=== PATIENT | female | born 1975 | race Caucasian/White ===

== ENCOUNTER 2016-11-19 12:18 | Emergency (ER) | payer MEDICAID ==
[~2016-11-19] VITALS: Ht 167.6 cm; Wt 72.6 kg
[2016-11-19 12:32] VITALS: BP 117/70; PULSE 85; RESP 20; TEMP 98.3; O2SAT 97
--- NOTE | 2016-11-19 12:37 | NUR ---
Pt placed to ER waiting room in stable condition. Urine specimen cup provided.
--- NOTE | 2016-11-19 12:52 | NUR ---
MD Russ at bedside.
--- NOTE | 2016-11-19 12:52 | NUR ---
Patient placed in room 1 for MD Rodríguez.
[2016-11-19] MEDS ORDERED: KETOROLAC TROMETHAMINE 60 MG/2 ML VIAL IM ONE (13:00)
[2016-11-19] MEDS ORDERED: DEXAMETHASONE SOD PHOSPHATE 10 MG/ML VIAL IVP ONE (13:00)
[2016-11-19 13:17] LABS: BILIRUBIN,URINE NEGATIVE (NEGATIVE); BLOOD, URINE NEGATIVE (NEGATIVE); CLARITY/URINE CLEAR (CLEAR); COLOR,URINE YELLOW (YELLOW); GLUCOSE,URINE NEGATIVE (NEGATIVE); KETONES,URINE NEGATIVE (NEGATIVE); LEUKOCYTE ESTERASE ,URINE NEGATIVE (NEGATIVE); NITRITE, URINE NEGATIVE (NEGATIVE); PROTEIN URINE NEGATIVE (NEGATIVE); UROBILINOGEN,URINE 0.2 (0.2-1.0)
[2016-11-19] MEDS ORDERED: DEXAMETHASONE SOD PHOSPHATE 10 MG/ML VIAL IM ONE (13:45)
[2016-11-19 13:55] VITALS: BP 119/66; PULSE 78; RESP 16; O2SAT 99
--- NOTE | 2016-11-19 13:56 | NUR ---
Patient given written and verbal discharge instructions and verbalizes understanding. ER MD discussed with patient the results and treatment provided. Given copies of tests performed in ER. Patient in stable condition. ID arm band removed. Rx of ibuprofen given. Patient educated on pain management and to follow up with PMD. Pain Scale . Opportunity for questions provided and answered.
== END 2016-11-19 13:55 | disposition home or self-care (01) ==
LOC: SED 12:18
DX: S39.012A Strain of muscle, fascia and tendon of lower back, initial encounter (principal); X50.0XXA Overexertion from strenuous movement or load, initial encounter; Y93.89 Activity, other specified; Y99.8 Other external cause status; Y92.39 Other specified sports and athletic area as the place of occurrence of the external cause
CPT/HCPCS: 72100; 81003; 81025; 96372; 99285; J1100; J1885

== ENCOUNTER 2016-12-28 14:11 | Emergency (ER) | payer MEDICAID ==
[~2016-12-28] VITALS: Ht 167.6 cm; Wt 72.6 kg
[2016-12-28 14:11] VITALS: BP_SYST 124
[2016-12-28] MEDS ORDERED: HYDROmorphone 1 MG INJ. 1 MG/ML AMPUL IVP ONE (16:00)
[2016-12-28] MEDS ORDERED: ONDANSETRON HCL 4 MG/2 ML VIAL IVP ONE (16:00)
[2016-12-28] MEDS ORDERED: KETOROLAC TROMETHAMINE 30 MG VIAL IVP ONE (16:00)
[2016-12-28] MEDS ORDERED: methylPREDNISolone SOD SUCC/PF 62.5 MG/ML VIAL IVP ONE (16:00)
[2016-12-28] MEDS ORDERED: ONDANSETRON HCL 4 MG/2 ML VIAL ONE (16:28)
[2016-12-28 17:35] VITALS: BP_SYST 133
== END 2016-12-28 17:35 | disposition home or self-care (01) ==
LOC: SED 14:11
DX: M54.40 Lumbago with sciatica, unspecified side (principal); Z88.2 Allergy status to sulfonamides
CPT/HCPCS: 96374; 96375; 99284; J1170; J1885; J2405; J2930

== ENCOUNTER 2017-01-01 09:33 | Emergency (ER) | payer MEDICAID ==
[~2017-01-01] VITALS: Ht 165.1 cm; Wt 72.6 kg
[2017-01-01 09:38] VITALS: BP 142/112; PULSE 122; RESP 16; TEMP 96.4; O2SAT 97
--- NOTE | 2017-01-01 09:41 | NUR ---
Patient to ER bed 3 to gown for evaluation. Side rails up. Report given to ALEJANDRA DOYLE.
--- NOTE | 2017-01-01 09:50 | NUR ---
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 pain 04/13.slow movement.
--- NOTE | 2017-01-01 10:13 | NUR ---
ER at bedside examining patient.
[2017-01-01] MEDS ORDERED: CARISOPRODOL 350 MG TABLET PO ONE (10:30)
[2017-01-01] MEDS ORDERED: ONDANSETRON HCL 4 MG/2 ML VIAL IVP ONE ×2 (10:30→10:45)
[2017-01-01] MEDS ORDERED: NS 500 ML IV ONE (10:30)
[2017-01-01] MEDS ORDERED: MORPHINE 2 MG/ML INJ. SYRINGE IVP ONE ×2 (10:30→10:45)
[2017-01-01] MEDS ORDERED: KETOROLAC TROMETHAMINE 30 MG VIAL IVP ONE ×2 (10:30)
[2017-01-01] MEDS ORDERED: DEXAMETHASONE SOD PHOSPHATE 10 MG/ML VIAL IVP ONE (10:30)
--- NOTE | 2017-01-01 10:34 | NUR ---
# 20 gauge angiocath placed to RAC. Use of asceptic technique. Opsite placed over site. Blood return noted. Blood for lab drawn from site. Flushed with 10 cc of normal saline. No evidence of infiltration noted. Patient tolerated well.
--- NOTE | 2017-01-01 10:49 | NUR ---
Ravin quinn in [facility] - 01/01/17 at 1052 by TRAM 2D ECHO at the bedside
--- NOTE | 2017-01-01 10:53 | NUR ---
medicated per MD's order
--- NOTE | 2017-01-01 11:20 | NUR ---
pain decreased to 3/10,feels better.
[2017-01-01 11:30] VITALS: BP 106/68; PULSE 98; RESP 18; TEMP 98; O2SAT 99
--- NOTE | 2017-01-01 11:31 | NUR ---
Patient given written and verbal discharge instructions and verbalizes understanding. ER MD discussed with patient the results and treatment provided. Patient in stable condition. ID arm band removed. IV catheter removed intact and dressing applied, no active bleeding. Rx of x1 ibuprofen given. Patient educated on pain management and to follow up with PMD. Pain Scale 2/10 . Opportunity for questions provided and answered.
== END 2017-01-01 11:31 | disposition home or self-care (01) ==
LOC: SED 09:33
DX: M54.41 Lumbago with sciatica, right side (principal); R03.0 Elevated blood-pressure reading, without diagnosis of hypertension; Z88.2 Allergy status to sulfonamides
CPT/HCPCS: 81025; 96374; 96375; 99284; J1100; J1885; J2270; J2405

== ENCOUNTER 2022-02-13 17:10 | Emergency (ER) | payer SELFPAY ==
[~2022-02-13] VITALS: Ht 162.6 cm; Wt 59.0 kg
[2022-02-13 17:40] VITALS: BP_SYST 138
--- NOTE | 2022-02-13 17:43 | NUR ---
Patient to ER bed H1 to gown for evaluation. Side rails up.
--- NOTE | 2022-02-13 17:53 | NUR ---
ER Dr.Dela Singh IN CHAIR examining patient.
[2022-02-13 18:05] VITALS: BP_SYST 138
--- NOTE | 2022-02-13 18:05 | NUR ---
Patient given written and verbal discharge instructions and verbalizes understanding. ER MD discussed with patient the results and treatment provided. Patient in stable condition. ID arm band removed. NO Rx of given. Patient educated on pain management and to follow up with PMD. Pain Scale 0. Opportunity for questions provided and answered. Medication side effect fact sheet provided.PT DISCHARGED TO [employer] CUST[employer].
== END 2022-02-13 18:05 ==
LOC: SED 17:10
DX: M54.9 Dorsalgia, unspecified (principal); Z88.2 Allergy status to sulfonamides
CPT/HCPCS: 99283